=== PATIENT | female | born 1945 | race Asian ===

== ENCOUNTER → 2018-04-30 | Outpatient (CLI) | payer OTHER | END | disposition home or self-care (01) | LOC: CFH 14:31 | PROVIDERS: ATTEND Internal Medicine Cardiovascular Disease | DX: I51.7 Cardiomegaly (principal); I10 Essential (primary) hypertension; E78.5 Hyperlipidemia, unspecified | CPT/HCPCS: 93306 ==

== ENCOUNTER 2018-11-22 07:13 | Emergency (ER) | payer OTHER ==
[~2018-11-22] VITALS: Ht 147.3 cm; Wt 75.8 kg
[2018-11-22 07:59] VITALS: BP 146/61
--- NOTE | 2018-11-22 09:19 | NUR ---
FIRST CONTACT WITH PT. Patient/Caregiver given discharge instructions and they have confirmed that they understand the instructions. Patient ambulatory with steady gait. PT LEFT WITH ALL PERSONAL BELONGINGS.
== END 2018-11-22 09:22 | disposition home or self-care (01) ==
LOC: ED 09:16
DX: I10 Essential (primary) hypertension (principal)
CPT/HCPCS: 93005; 99283